=== PATIENT | male | born 1995 | race Caucasian/White ===

== ENCOUNTER 2023-10-29 19:17 | Emergency (ER) | payer MEDICAID, SELFPAY ==
[2023-10-29 19:17] VITALS: BP 260/174; PULSE 140; RESP 28; O2SAT 96; BMI 40.2
[2023-10-29 19:18] VITALS: BMI 39.5
--- NOTE | 2023-10-29 19:19 | CT_ITS ---
PROCEDURE INFORMATION: Exam: CT Head Without Contrast Exam date and time: 10/29/2023 7:22 PM Age: 33 years old Clinical indication: Stroke-like symptoms; Other: R/O stroke TECHNIQUE: Imaging protocol: Computed tomography of the head without contrast. Radiation optimization: All CT scans at this facility use at least one of these dose optimization techniques: automated exposure control; mA and/or kV adjustment per patient size (includes targeted exams where dose is matched to clinical indication); or iterative reconstruction. Other technique: STROKE PROTOCOL was implemented. COMPARISON: No relevant prior studies available. FINDINGS: Limitations: The study is motion degraded. Brain: Acute intraparenchymal hemorrhage is seen laterally in the right basal ganglia region measuring 4.5 x 1.7 x 3.4 cm with calculated volume of 13 cc. There is minimal surrounding edema present with minimal mass effect partially effacing the right lateral ventricle anteriorly. No significant midline shift. No acute ischemic infarct. Cerebral ventricles: No ventriculomegaly. Paranasal sinuses: No significant inflammation. No fluid levels. Mastoid air cells: No significant inflammation. Bones/joints: No acute fracture. Soft tissues: Unremarkable. IMPRESSION: Acute intraparenchymal hemorrhage centered in the lateral aspect of the right basal ganglia with minimal surrounding edema and mass effect. No evidence of midline shift. ASSESSMENT: ASPECTS ([facility] Stroke Program Early CT Score) is 10.
--- NOTE | 2023-10-29 19:23 | CT_ITS ---
PROCEDURE INFORMATION: Exam: CTA Neck With Contrast Exam date and time: 10/29/2023 7:26 PM Age: 27 years old Clinical indication: Stroke-like symptoms TECHNIQUE: Imaging protocol: Computed tomographic angiography of the neck with contrast. Exam focused on the cervical segments of the vasculature. 3D rendering (Not supervised by radiologist): MIP and/or 3D reconstructed images were created by the technologist. Radiation optimization: All CT scans at this facility use at least one of these dose optimization techniques: automated exposure control; mA and/or kV adjustment per patient size (includes targeted exams where dose is matched to clinical indication); or iterative reconstruction. Contrast material: ISO 370; Contrast volume: 100 ml; Contrast route: INTRAVENOUS (IV); COMPARISON: CT ANGIO HEAD 10/29/2023 7:26 PM FINDINGS: Right common carotid artery: No stenosis. No dissection or occlusion. Right internal carotid artery: No stenosis of the extracranial segment. No dissection or occlusion. Right external carotid artery: No visible occlusion. Left common carotid artery: No stenosis. No dissection or occlusion. Left internal carotid artery: No stenosis of the extracranial segment. No dissection or occlusion. Left external carotid artery: No visible occlusion. Right vertebral artery: No stenosis. No dissection or occlusion. Left vertebral artery: No stenosis. No dissection or occlusion. Lymph nodes: Subcentimeter mediastinal nodes are nonspecific and may be reactive. 2.1 cm subcarinal node. 1.8 cm right hilar node. Soft tissues: No significant soft tissue swelling. Bones/joints: No acute fracture. Lungs: There is diffuse ground-glass density in the visualized lungs. Other findings: There is tortuosity of the distal cervical internal carotid arteries bilaterally. IMPRESSION: 1. No occlusion or significant stenosis. 2. There is diffuse ground-glass density in the visualized lungs possibly atelectasis. Correlate for possible infection. 3. Nonspecific mediastinal and right hilar adenopathy. Correlate with history. REFERENCES: NASCET CRITERIA. The degree of stenosis in the cervical segment of the internal carotid artery is based on NASCET criteria. Normal is no stenosis. Mild is less than 50% stenosis. Moderate is 50-69% stenosis. Severe is 70% to 99% stenosis. Total occlusion is no detectable patent lumen.
--- NOTE | 2023-10-29 19:23 | CT_ITS ---
PROCEDURE INFORMATION: Exam: CTA Head With Contrast, Arteriography Exam date and time: 10/29/2023 7:26 PM Age: 27 years old Clinical indication: Stroke-like symptoms; Vomiting TECHNIQUE: Imaging protocol: Computed tomographic angiography of the head with contrast. Exam focused on the arteries. 3D rendering (Not supervised by radiologist): MIP and/or 3D reconstructed images were created by the technologist. Radiation optimization: All CT scans at this facility use at least one of these dose optimization techniques: automated exposure control; mA and/or kV adjustment per patient size (includes targeted exams where dose is matched to clinical indication); or iterative reconstruction. Contrast material: ISO 370; Contrast volume: 100 ml; Contrast route: INTRAVENOUS (IV); COMPARISON: CT HEAD/BRAIN WO CON 10/29/2023 7:22 PM FINDINGS: ANTERIOR CIRCULATION: Right internal carotid artery: Intracranial segment is patent with no significant stenosis. No aneurysm. Right middle cerebral artery: No occlusion or significant stenosis. No aneurysm. Right anterior cerebral artery: No occlusion or significant stenosis. No aneurysm. 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 Left middle cerebral artery: No occlusion or significant stenosis. No aneurysm. Left anterior cerebral artery: No occlusion or significant stenosis. No aneurysm. POSTERIOR CIRCULATION: Right vertebral artery: No occlusion or significant stenosis. No aneurysm. Left vertebral artery: No occlusion or significant stenosis. No aneurysm. Basilar artery: No occlusion or significant stenosis. No aneurysm. Right posterior cerebral artery: No occlusion or significant stenosis. No aneurysm. Left posterior cerebral artery: No occlusion or significant stenosis. No aneurysm. Brain: Right basal ganglia intraparenchymal hemorrhage laterally with minimal mass effect is again present. No midline shift is seen. Nonspecific tortuosity and mild ectasia diffusely of the intracranial vasculature. Cerebral ventricles: No ventriculomegaly. Bones/joints: No acute fracture. Soft tissues: Unremarkable. IMPRESSION: 1. No acute large vessel occlusion identified. 2. 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
[2023-10-29 19:30] LABS: Basophils # 0.2 K/mm3 (0-0.2); Basophils % 1.3 % (0.1-2.0); Eosinophils # 0.5 K/mm3 (0.0-0.4); Eosinophils % 3.1 % (0.1-12.0); Hematocrit 41.2 % (42.0-52.0); Hemoglobin 13.6 g/dL (14.1-18.0); Lymphocytes % 27.7 % (10-50); Mean Corpuscular Hemoglobin 28.8 pg (27.0-31.2); Mean Corpuscular Volume 87.2 fl (80-94); Mean Platelet Volume 9.2 fl (7.4-10.4); Monocytes # 0.5 K/mm3 (0.1-1.0); Monocytes % 3.7 % (1.7-9.3); Neutrophils # 9.3 K/mm3 (1.8-7.8); Neutrophils % 64.2 % (37.0-80.0); Platelet Count 272 K/mm3 (142-424); Red Blood Count 4.73 M/mm3 (4.60-6.20); Red Cell Distribution Width 17.2 % (11.5-17.5); White Blood Count 14.5 K/mm3 (4.8-10.8)
[2023-10-29] MEDS: DEXAMETHASONE 4MG/ML 1ML VIAL 10 MG IV (19:30)
--- NOTE | 2023-10-29 19:31 | PC.NURSE ---
[facility] declined to transport due to weather.
[2023-10-29 19:32] VITALS: BMI 40.2
--- NOTE | 2023-10-29 19:34 | PC.NURSE ---
Spoke with TOSHA BEAR from [facility] and verified dose of TXA.
--- NOTE | 2023-10-29 19:35 | HMH.EDGENADL ---
Discharge Plan Disposition Chief Complaint: Neuro Symptoms/Deficit Referrals Follow up/Referrals: Thanh Goldsmith MD [Primary Care Provider] - See instructions Clinical Impressions Clinical Impression: Basal ganglia hemorrhage Discharge ED Provider: Jonny Blum General Adult HPI General Stated complaint: Stroke Time Seen by Provider: 10/29/23 19:20 History of Present Illness HPI narrative: This is a 27(?)-year-old male presenting with spontaneous flacidity. Patient was sitting at dinner just before arrival and became weak on his left side. EMS was called. Patient brought to the emergency department. Per family, patient has autism, no past medical history otherwise and does not take any medications. Related Data Allergies Allergy/AdvReac Type Severity Reaction Status Date / Time No Known Allergies Allergy Verified 10/29/23 19:19 [facility] Disclaimer: The information contained in this section may have been updated after the patient was seen, as this information can be updated by other users. Social History Smoking Status: Unknown if ever smoked alcohol intake: never current occupational status: unemployed Travel in the last 8 weeks: None ROS Obtained: Yes unobtainable due to mental status Physical Exam General General appearance: alert and obese Eye Eye exam: Absent PERRL or EOMI Respiratory Respiratory exam: Present normal lung sounds bilaterally and other (Protecting airway, answering questions); Absent respiratory distress, wheezes, stridor or accessory muscle use Cardiovascular Cardiovascular exam: Present normal rhythm and tachycardia Abdominal Exam Abdominal exam: Present soft; Absent distention Neurological Exam Neurological exam: Present alert, oriented X3, motor sensory deficit and other (Flaccidity on left side. Severe dysarthria. Following commands on right side.); Absent CN II-XII intact Medical Decision Making Medical Records Medical records reviewed: Yes I reviewed the patient's medical records. Ernesto Inquiry Pt receiving controlled substance: No Enresto was queried for this patient: No Lab Data Lab Results 10/29/23 19:22: WBC 14.5 H, RBC 4.73, Hgb 13.6 L, Hct 41.2 L, MCV 87.2, MCH 28.8, MCHC 33.0, RDW 17.2, Plt Count 272, MPV 9.2, Neut % (Auto) 64.2, Lymph % (Auto) 27.7, [place] % (Auto) 3.7, Eos % (Auto) 3.1, Baso % (Auto) 1.3, Neut # (Auto) 9.3 H, Lymph # (Auto) 4.0, [place] # (Auto) 0.5, Eos # (Auto) 0.5 H, Baso # (Auto) 0.2 10/29/23 19:22 Orders (Tests/Meds): ED MEDICATIONS Generic Name Dose Route Start Last Admin Trade Name Freq PRN Reason Stop Dose Admin Sodium Chloride 10 ml 10/29/23 19:18 Sodium Chloride 0.9% 10ml Flush Syringe IV 11/28/23 19:17 NEEDED PRN Maintain IV Site Sodium Chloride 10 ml 10/29/23 19:20 Sodium Chloride 0.9% 10ml Flush Syringe IV 11/28/23 19:19 NEEDED PRN Maintain IV Site Discontinued Medications Generic Name Dose Route Start Last Admin Trade Name Freq PRN Reason Stop Dose Admin Dexamethasone Sodium Phosphate 10 mg 10/29/23 19:27 Dexamethasone 4mg/Ml 1ml Vial IV 10/29/23 19:28 ONCE ONE Tranexamic Acid 1,000 mg/ 260 mls @ 520 mls/hr 10/29/23 19:27 Sodium Chloride IV 10/29/23 19:28 ONCE ONE ORDERS Category Date Time Status CT angio head Stat Cat Scan 10/29/23 19:[address] angio neck Stat Cat Scan 10/29/23 19:[address] head/brain wo con Stat Cat Scan 10/29/23 19:19 Taken Activated Partial Thrombo Time Stat Lab 10/29/23 19:22 Received Basic Metabolic Panel Stat Lab 10/29/23 19:22 Received Complete Blood Count Auto Diff Stat Lab 10/29/23 19:22 Completed Lipid Panel Stat Lab 10/29/23 19:22 Received Prothrombin Time INR Stat Lab 10/29/23 19:22 Received Troponin I Q3H Lab 10/29/23 22:30 Ordered Troponin I Q3H Lab 10/30/23 01:30 Ordered Troponin I Stat Lab 10/29/23 19:22 Received Urinalysis and Microscopic Stat Lab 10/29/23 19:21 Ordered Medical Decision Narrative: This is a 27(?)-year-old male presenting with spontaneous flacidity. Patient was sitting at dinner just before arrival and became weak on his left side. EMS was called. Patient brought to the emergency department. Per family, patient has autism, no past medical history otherwise and does not take any medications. History obtained with EMS, patient's mother. On arrival, patient protecting her own following commands on his right, flaccid on his left. Patient answering to shakes and nods, denying pain. Patient taken immediately to CT scanner. CT of the head with concern for intraparenchymal hemorrhage on the right without significant midline shift. Initial blood pressure systolic to 60, tachycardic 150. Patient was given 20 mg of labetalol IV, 1 g TXA. Intubation was considered, but given patient protecting airway, following commands, alert, answering appropriate questions, not deemed appropriate at this time. Head of bed elevated. Neurosurgery at [facility] was contacted, graciously excepted transfer under Dr. Ruvalcaba. Critical Care Critical Care Time Critical Care Time: Yes (neuro) Attestation: On 10/29/23, the high probability of a clinically significant, sudden or life threatening deterioration of the following system(s) required my full and direct attention, intervention and personal management. The time I documented below is in addition to time spent performing reported procedures but includes the following listed in this critical care notation. Total Time Total Critical Care Time: 45
--- NOTE | 2023-10-29 19:39 | PC.NURSE ---
Informed ER doctor about dose being verified
[2023-10-29 19:42] LABS: Activated Partial Thrombo Time 25.9 seconds (22.8-30.6); Anion Gap 15.5 mEq/L (5-15); Blood Urea Nitrogen 25 mg/dl (9-20); Calcium 10.1 mg/dl (8.4-10.2); Carbon Dioxide 22 mmol/L (22.0-30.0); Chloride 102 mmol/L (98-107); Chol/HDL Ratio 6.5 (1-3.5); Cholesterol 183 mg/dl (140-200); Creatinine Clearance Estimated 131 mL/min (50-200); Estimated Glomerular Filt Rate 66 ml/min (>60); GFR (African American) 80 ML/MIN (>60); Glucose 190 mg/dl (74-100); HDL Cholesterol 28 mg/dl (40-60); INR 0.96 (0.9-1.1); Potassium 3.5 mmoL/L (3.5-5.1); Prothrombin Time 10.4 seconds (10.1-12.5); Sodium 136 mmol/L (136-145); Triglycerides 400 mg/dl (30-150)
[2023-10-29] MEDS: TRANEXAMIC ACID 1,000 MG in 0.9 % SODIUM CHLORIDE 250 ML 520 MG IV (19:46)
[2023-10-29 19:50] VITALS: BP 236/157
[2023-10-29] MEDS: LABETALOL 20MG/4ML SYRINGE 20 MG IV (19:50)
[2023-10-29 19:53] LABS: Direct LDL Cholesterol 94.73 mg/dL (100-129)
[2023-10-29 19:56] VITALS: TEMP 37.5
[2023-10-29 19:57] LABS: Microscopic, Urine URINE MICROSCOPIC (MICROSCOPIC)
[2023-10-29 19:59] LABS: Troponin I 0.28 ng/ml (0.00-0.034)
[2023-10-29 20:00] VITALS: BP 211/150; PULSE 112; RESP 16; O2SAT 91
[2023-10-29 20:02] LABS: Appearance,Urine CLEAR (Clear); Bilirubin,Urine Negative (Negative); Blood, Urine TRACE-I (Negative); Color,Urine YELLOW (Yellow); Glucose,Urine (UA) TRACE (Negative); Ketones,Urine TRACE (Negative); Leukocyte Esterase,Urine Negative (Negative); Nitrate,Urine Negative (Negative); Protein,Urine 2+ (Negative); Specific Gravity, Urine >= 1.030 (1.005-1.030); Urobilinogen,Urine 0.2 EU/dl (0.2)
[2023-10-29 20:05] VITALS: BP 211/150
[2023-10-29] MEDS: LABETALOL 5MG/ML 20ML MDV 20 MG IV (20:05)
[2023-10-29 20:08] VITALS: BP 199/142; PULSE 110; RESP 20; TEMP 37.5; O2SAT 92
[2023-10-29] MEDS: NICARDIPINE HCL 25 MG in 0.9 % SODIUM CHLORIDE 240 ML 50 MG IV (20:19)
[2023-10-29 20:29] LABS: RBC,Urine Occasional #/hpf (0-3)
== END 2023-10-29 20:11 | disposition short-term general hospital (02) ==
PROVIDERS: Physician Assistant; Emergency Provider Emergency Medicine; PCP Internal Medicine Adolescent Medicine
DX: I61.0 Nontraumatic intracerebral hemorrhage in hemisphere, subcortical (principal); R53.1 Weakness; F84.0 Autistic disorder
CPT/HCPCS: 51702; 70450; 70496; 70498; 80048; 80061; 81001; 84484; 85025; 85610; 85730; 96374; 96375; 99291

== ENCOUNTER → 2024-02-01 08:10 | Outpatient (CLI) | payer MEDICAID, SELFPAY | LOC: SL 08:11 | PROVIDERS: PCP Internal Medicine Adolescent Medicine; Visit Provider Internal Medicine Adolescent Medicine | DX: G47.33 Obstructive sleep apnea (adult) (pediatric) (principal); G47.36 Sleep related hypoventilation in conditions classified elsewhere | CPT/HCPCS: G0399 ==

== ENCOUNTER 2024-02-03 14:00 | Outpatient (RCR) | payer MEDICAID, SELFPAY ==
--- NOTE | 2023-11-30 11:29 | HMH.PTOPEV ---
PT Outpatient Evaluation Rehab PT Outpatient Evaluation Start: 11/30/23 10:01 Freq: Status: Active Protocol: Document 11/30/23 11:19 SERAFIN (Rec: 11/30/23 11:28 SERAFIN [id number]) E-signed By Bryson Henderson, PT Outpatient Therapy Subjective History Subjective History Pt and pt's mother report pt sustained a CVA on 10/29/23, caused by right basal ganglia ICH. Pt reports left sided weakness since CVA, however reports 'I feel like I've gotten most of my left leg strength back.' Pt and pt's mother report some lingering deficits in overall standing and walking endurance, and desire to return to work at [employer] part-time, 'but I think I need to get stronger.' PMH:autism New diagnosis of cancer in past 12 No months? Chief Complaint Weakness Symptoms Relieved By Rest/Positioning Symptoms Aggravated By Standing,Physical Activity, Walking Prior Functional Limitations None Current Functional Limitations Housework,Standing,Walking Hip/Knee Eval Gait Observation General Gait Pattern Observation No Deviations/Normal Assistive Device Assistive Devices None / NA MMT left Hip Flexion Strength Grade 4 Good Hip Abduction Strength Grade 4 Good Hip Adduction Strength Grade 4 Good Hip Extension Strength Grade 4 Good Knee Extension Strength Grade 5 Normal Knee Flexion Strength Grade 4 Good right Hip Flexion Strength Grade 5 Normal Hip Abduction Strength Grade 5 Normal Hip Adduction Strength Grade 5 Normal Hip Extension Strength Grade 5 Normal Knee Extension Strength Grade 5 Normal Knee Flexion Strength Grade 5 Normal ROM bilateral Hip ROM Reason Not Measured Within Functional Limits Knee ROM Reason Not Measured Within Functional Limits Ankle/Foot Eval ROM Ankle/Foot ROM Reason Not Measured Within Functional Limits MMT Ankle Dorsiflexion Strength Grade 5 Normal Tinetti Sitting Balance Sitting Balance Steady, safe Arising from Chair Ability to Arise Able, w/o using arms Attempts to Arise Arises on 1st attempt Standing Balance Immediate Standing Balance Steady w/o support Standing Balance Steady, wide stance Nudged Response Steady Standing with Eyes Closed Steady Turning Step Pattern Turning 360 Degrees Continuous steps Stability Turning 360 Degrees Steady Sitting Down Sitting Down Safe, steady Gait and Step Initiation of Gait No hesitancy Right Foot Step Length Does pass stance foot Right Foot Step Height Completely clears floor Left Foot Step Length Does pass stance foot Left Foot Step Height Completely clears floor Step Description Step Symmetry Step length appears equal Step Continuity Steps appear continuous Gait Description Path Description Straight Trunk Description No sway Walking Stance Heels apart Scoring and Interpretation Tinetti Composite Score (points) 26 Outpatient Therapy Assessment Impairments Problems/Impairmments Impaired Strength,Impaired Walking,Impaired Standing, Impaired Household Care, Impaired Work Activities, Subjective C/O Pain,Impaired Self Care/Self Management Prognosis Rehab Potential Good Clinical Impression Consistent with Diagnosis Yes Short Term Goals Number of Weeks 4 Increase Strength Yes: 4+/5 LLE Increase Ability to Walk Yes: 30MIN Increase Ability to Stand Yes: 30MIN Improve Ability For Household Care Yes: 30MIN Patient to be Ind w/ HEP Yes 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 Number of Weeks 6-8 Increase Strength Yes: 5/5 LLE Increase Ability to Walk Yes: 60MIN Increase Ability to Stand Yes: 60MIN Improve Ability For Household Care Yes: 60MIN Improve Tolerance to Work Activities Yes: [employer] PART[employer]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 Patient/Guardian verbally acknowledges Yes understanding of treatment program and consents to further treatment? Patient/Guardian verbally acknowledges Yes understanding of diagnosis, prognosis and goals for treatment? Eval Complexity PT Charges 10182 - Moderate Complexity Shoulder/Elbow Eval Shoulder Objective Measurements Elbow Objective Measurements PHYSICIAN CERTIFICATION: I certify the specified therapy services for Charles Casas are required, authorized, and reviewed every 30 days.
--- NOTE | 2024-02-03 18:01 | HMH.RHREAS ---
Rehab Reassessment Rehab OP Re-assessment Start: 11/30/23 10:01 Freq: Status: Active Protocol: Document 02/03/24 17:56 [email or web address] (Rec: 02/03/24 18:01 PHORNE [id number]) E-signed By Sharath Cruz, PT Tinetti Sitting Balance Sitting Balance Steady, safe Arising from Chair Ability to Arise Able, w/o using arms Attempts to Arise Arises on 1st attempt Standing Balance Immediate Standing Balance Steady w/o support Standing Balance Narrow stance w/o support Nudged Response Steady Standing with Eyes Closed Steady Turning Step Pattern Turning 360 Degrees Continuous steps Stability Turning 360 Degrees Steady Sitting Down Sitting Down Safe, steady Gait and Step Initiation of Gait No hesitancy Right Foot Step Length Does pass stance foot Right Foot Step Height Completely clears floor Left Foot Step Length Does pass stance foot Left Foot Step Height Completely clears floor Step Description Step Symmetry Step length appears equal Step Continuity Steps appear continuous Gait Description Path Description Straight Trunk Description No sway Walking Stance Heels together Scoring and Interpretation Tinetti Composite Score (points) 28 Interpretation of Scores Low risk for falls (>24) Rehab Re-assessment Subjective Subjective Pt reports I'm a little tired , but I feel good today. I've been back to work a little bit and I haven't had any problems standing or walking. Objective Objective Notes MMT: LEFT HIP FLX 4+/5, LEFT HIP ABD 4+/5, LEFT HIP ADD 5/5 , LEFT HIP EXT 5/5, LEFT KNEE EXT 5/5, LEFT KNEE FLX 5/5 Tinetti: No difficulty clearing L LE during swing phase of gait. Dynamic standing balance is GOOD. Assessment Progress Assessment Progressing as Expected Assessment Notes Returned to work and independent with all ADLs. Pt has met all goals and is appropriate to continue his HEP independently at this time . No further skilled physical therapy needs at this time. Patient goals met STG'S 11/28 LTG'S 12/30 Plan Plan Will D/C pt to independent HEP at this time. Frequency of Therapy 0 Duration of therapy 0 Time and Billing Re-Eval Time 11 Re-Eval Billing Units 1 PHYSICIAN CERTIFICATION: I certify the specified therapy services for Charles Casas are required, authorized, and reviewed every 30 days.
== END 2024-02-03 14:05 | disposition home or self-care (01) ==
LOC: PT 14:00
PROVIDERS: Visit Provider Internal Medicine Adolescent Medicine
DX: I69.918 Other symptoms and signs involving cognitive functions following unspecified cerebrovascular disease (principal)
CPT/HCPCS: 97110; 97163; 97164; 97530

== ENCOUNTER 2024-03-02 14:00 | Outpatient (RCR) | payer MEDICAID, SELFPAY ==
--- NOTE | 2023-11-30 10:45 | HMH.OTOPEV ---
OT Inpatient Evaluation Rehab OT Outpatient Eval Start: 11/30/23 10:29 Freq: Status: Active Protocol: Document 11/30/23 10:29 RMARSHALL (Rec: 11/30/23 10:44 [facility] [id number]) E-signed By Yehuda Longoria, OT Outpatient Therapy Subjective History Subjective History Pt is a 27 year old male who reports to therapy for initial evaluation after CVA. Pt had acute onset of L sided weakness on 10/29/23 due to a right basal ganglia bleed and was admitted to . Following discharge from he went to [facility] rehab for 1 week . Prior to stroke, pt was independent with all ADLs and IADLs. 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 Pt does have a past medical history of Autism. At this time, pt appears to be back to baseline with ADLS. Pt does have some residual deficits to LUE from stroke. 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 Pt is right hand dominant. Pt's AROM at left wrist and elbow are within normal limits, but pt's shoulder AROM is slightly declined. Pt will continue to be seen to address LUE deficits along with fine motor deficits. STG L hand tower excavator operator strength: 45 lbs LTG L hand tower excavator operator strength: 50 lbs 9 Hole peg test current score: 32 seconds STG 9 hole peg test: 30 seconds LTG 9 hole peg test: 28 seconds New diagnosis of cancer in past 12 No months? 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 Aggravated By Physical Activity,Lifting Prior Functional Limitations None Current Functional Limitations Reaching,Lifting,Housework Symptom Description Activity Dependent Shoulder/Elbow Eval Shoulder Objective Measurements Shoulder ROM Left Shoulder Abduction Active Range of 125 degrees Motion (degrees) Shoulder Flexion Active Range of Motion 145 degrees (degrees) Query Text: Shoulder External Rotation Active Range 70 degrees of Motion (degrees) Shoulder Internal Rotation Active Range 70 degrees of Motion (degrees) Shoulder MMT Shoulder Abduction Strength Grade 4- Good- Shoulder Flexion Strength Grade 4- Good- Shoulder External Rotation Strength 4- Good- Grade Shoulder Internal Rotation Strength 4- Good- Grade Shoulder Strength Patient Testing Sitting Position Elbow Objective Measurements Elbow MMT Left Elbow Flexion Strength Grade 4- Good- Elbow Extension Strength Grade 4- Good- Supination Strength Grade 4- Good- Pronation Strength Grade 4- Good- Wrist/Hand Eval Wrist Manual Muscle Testing Left Wrist Extension Strength Grade 4- Good- Wrist Flexion Strength Grade 4- Good- Wrist Radial Deviation Strength Grade 4- Good- Wrist Ulnar Deviation Strength Grade 4- Good- Forearm Supination Strength Grade 4- Good- Forearm Pronation Strength Grade 4- Good- Supervisor Acoustical Tile Carpenters/Pinch Strength Right Supervisor Acoustical Tile Carpenters Strength Measurement (lbs) 55 Left Supervisor Acoustical Tile Carpenters Strength Measurement (lbs) 30 OT Outpatient Assessment Impairments Problems/Impairments Palpation Tenderness,Impaired Range of Motion,Impaired Strength,Impaired Endurance, Impaired Lifting,Impaired Recreational Activities, Impaired Work Activities Prognosis Rehab Potential Good Clinical Impression Consistent with Diagnosis Yes Short Term Goals Number of Weeks 4 Increase Range of Motion Yes: L shoulder: Flex: 155 Abd : 135 ER: 80 Increase Strength Yes: 4/5 strength throughout L UE Increase Endurance Yes: Pt will tolerate L UE exercises for ~20 min prior to rest. 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 Patient to be Ind w/ Advanced HEP Yes: Advanced strengtening exercises Outpatient Therapy Plan of Care Treatment Plan May Include Therapeutic Exercise Including Home Yes Exercise Program Manual Therapy Techniques Yes Neuromuscular Re-education Yes Therapeutic Activities to Return to Yes Previous Functional/Work Level Electrical Stimulation Yes Ultrasound/Phonophoresis Yes Iontophoresis Yes Orthotics/Bracing/Splinting Yes Massage Yes Eval/Re-Eval Yes Frequency Times per week 2 Duration Number of Weeks 6 Addendums This patient is a candidate for social No or vocational rehab? Patient/Guardian verbally acknowledges Yes understanding of treatment program and consents to further treatment? Patient/Guardian verbally acknowledges Yes understanding of diagnosis, prognosis and goals for treatment? Eval Complexity OT Charge 85392 - Moderate Complexity PHYSICIAN CERTIFICATION: I certify the specified therapy services for Charles Casas are required, authorized, and reviewed every 30 days.
--- NOTE | 2023-12-31 16:02 | HMH.RHREAS ---
Rehab Reassessment Rehab OP Re-assessment Start: 11/30/23 10:29 Freq: Status: Active Protocol: Document 12/31/23 14:56 FAHAD (Rec: 12/31/23 16:02 JOAOL [id number]) E-signed By Yehuda Longoria OT Rehab Re-assessment Subjective Subjective I do feel like I am stronger. Objective Objective Notes Pt continues to be seen twice a week in order to address LUE deficits. Each session pt engages in LUE AROM, AAROM, and strengthening exercises. Pt also engages in rate clerk passenger strengthening and fine motor precision activities. Pt does receive PROM manual stretching to left shoulder in flexion, abduction, ER, and IR. Assessment Progress Assessment Progressing as Expected Assessment Notes Pt very consistent about attending therapy sessions. Pt demonstrates great improvement in overall LUE function, AROM, strength, and rate clerk passenger strength since initial evaluation. Current AROM L shoulder and MMT Flex: 155 degrees; 4 Abd: 165 degrees; 4 ER: 85 degrees; 4 IR: 70 degrees; 4 Current L hand rate clerk passenger strength: 48 lbs [address] goals [address]-4 STG L hand rate clerk passenger strength: 45 lbs Goals Not Met see below Revised Goals LT-4 Plan Plan Continue with OT plan of care at this time. Frequency of Therapy 2x's a week Duration of therapy 4 more weeks Time and Billing Re-Eval Time 10 Re-Eval Billing Units 1 PHYSICIAN CERTIFICATION: I certify the specified therapy services for Charles Casas are required, authorized, and reviewed every 30 days.
== END 2024-03-02 14:05 | disposition home or self-care (01) ==
LOC: OT 14:00
PROVIDERS: Visit Provider Internal Medicine Adolescent Medicine
DX: I61.8 Other nontraumatic intracerebral hemorrhage (principal); I61.0 Nontraumatic intracerebral hemorrhage in hemisphere, subcortical; I69.354 Hemiplegia and hemiparesis following cerebral infarction affecting left non-dominant side
CPT/HCPCS: 97110; 97140; 97164; 97166

== ENCOUNTER 2024-03-29 13:24 | Outpatient (CLI) | payer MEDICAID, SELFPAY ==
[2024-03-29 13:35] LABS: Microscopic, Urine URINE MICROSCOPIC (MICROSCOPIC)
[2024-03-29 14:14] LABS: Appearance,Urine CLEAR (Clear); Bilirubin,Urine Negative (Negative); Blood, Urine Negative (Negative); Color,Urine YELLOW (Yellow); Glucose,Urine (UA) Negative (Negative); Ketones,Urine Negative (Negative); Leukocyte Esterase,Urine Negative (Negative); Nitrate,Urine Negative (Negative); Protein,Urine TRACE (Negative); Specific Gravity, Urine 1.025 (1.005-1.030); Urobilinogen,Urine 0.2 EU/dl (0.2)
[2024-03-29 14:16] LABS: Basophils # 0.1 K/mm3 (0-0.2); Basophils % 0.8 % (0.1-2.0); Eosinophils # 0.1 K/mm3 (0.0-0.4); Eosinophils % 1.6 % (0.1-12.0); Hematocrit 38.2 % (42.0-52.0); Hemoglobin 11.9 g/dL (14.1-18.0); Lymphocytes # 2.3 K/mm3 (0.7-4.5); Lymphocytes % 30.6 % (10-50); Mean Corpuscular HGB Conc 31.1 g/dL (31.8-35.4); Mean Corpuscular Hemoglobin 29.3 pg (27.0-31.2); Mean Corpuscular Volume 94.4 fl (80-94); Mean Platelet Volume 9.3 fl (7.4-10.4); Monocytes # 0.4 K/mm3 (0.1-1.0); Monocytes % 5.9 % (1.7-9.3); Neutrophils # 4.6 K/mm3 (1.8-7.8); Neutrophils % 61.1 % (37.0-80.0); Platelet Count 250 K/mm3 (142-424); Red Blood Count 4.05 M/mm3 (4.60-6.20); Red Cell Distribution Width 14.8 % (11.5-17.5); White Blood Count 7.5 K/mm3 (4.8-10.8)
[2024-03-29 14:46] LABS: Creatinine,Urine Random 179 mg/dL (Not Estab.)
[2024-03-29 14:49] LABS: Albumin Level 4.5 g/dl (3.5-5.0); Anion Gap 11.1 mEq/L (5-15); Blood Urea Nitrogen 27 mg/dl (9-20); Calcium 9.9 mg/dl (8.4-10.2); Carbon Dioxide 25 mmol/L (22.0-30.0); Chloride 107 mmol/L (98-107); Estimated Glomerular Filt Rate 51 ml/min (>60); GFR (African American) 62 ML/MIN (>60); Glucose 92 mg/dl (74-100); Phosphorous 3.9 mg/dl (2.5-4.5); Potassium 5.1 mmoL/L (3.5-5.1); Sodium 138 mmol/L (136-145)
== END 2024-03-29 23:59 | disposition home or self-care (01) ==
LOC: LAB 13:26
PROVIDERS: PCP Internal Medicine Adolescent Medicine; Visit Provider Internal Medicine Nephrology
DX: I10 Essential (primary) hypertension (principal)
CPT/HCPCS: 36415; 80069; 81001; 82570; 84156; 85025

== ENCOUNTER 2024-05-11 09:13 | Outpatient (CLI) | payer MEDICAID, SELFPAY ==
[2024-05-11 10:20] LABS: Albumin Level 4.7 g/dl (3.5-5.0); Chloride 106 mmol/L (98-107); Potassium 4.4 mmoL/L (3.5-5.1); Sodium 139 mmol/L (136-145)
[2024-05-11 10:22] LABS: Blood Urea Nitrogen 30 mg/dl (9-20); Estimated Glomerular Filt Rate 45 ml/min (>60); GFR (African American) 54 ML/MIN (>60)
[2024-05-11 10:23] LABS: Alanine Aminotransferase 18 U/L (12-78); Albumin/Globulin Ratio 1.5 (1.1-1.8); Alkaline Phosphatase 52 U/L (38-126); Anion Gap 12.4 mEq/L (5-15); Aspartate Amino Transferase 24 U/L (17-59); Bilirubin,Total 0.8 mg/dl (0.2-1.3); Carbon Dioxide 25 mmol/L (22.0-30.0); Chol/HDL Ratio 3.8 (1-3.5); Cholesterol 109 mg/dl (140-200); Globulin 3.2 g/dL (1.3-3.2); Glucose 94 mg/dl (74-100); HDL Cholesterol 29 mg/dl (40-60); Total Protein,Serum 7.9 g/dl (6.3-8.2); Triglycerides 208 mg/dl (30-150); VLDL Cholesterol 42 mg/dL (0-40)
[2024-05-11 10:30] LABS: Hemoglobin A1C 5.2 % (4.0-6.0)
[2024-05-11 10:34] LABS: Direct LDL Cholesterol 39.95 mg/dL (100-129)
== END 2024-05-11 23:59 | disposition home or self-care (01) ==
PROVIDERS: PCP Internal Medicine Adolescent Medicine; Visit Provider Internal Medicine Adolescent Medicine
DX: E11.69 Type 2 diabetes mellitus with other specified complication (principal); E78.5 Hyperlipidemia, unspecified
CPT/HCPCS: 36415; 80053; 80061; 83036

== ENCOUNTER 2024-06-15 14:00 | Outpatient (RCR) | payer MEDICAID, SELFPAY | END 2024-06-15 23:59 | disposition home or self-care (01) | LOC: ST 14:00 | PROVIDERS: Visit Provider Physical Medicine & Rehabilitation | DX: I61.8 Other nontraumatic intracerebral hemorrhage (principal); I61.0 Nontraumatic intracerebral hemorrhage in hemisphere, subcortical | CPT/HCPCS: 92507; 92523; 97129; 97130 ==

== ENCOUNTER 2025-04-05 09:20 | Outpatient (CLI) | payer MEDICAID, SELFPAY | END 2025-04-05 23:59 | disposition home or self-care (01) | LOC: LAB 09:22 | PROVIDERS: PCP Nurse Practitioner Family; Visit Provider Internal Medicine Nephrology | DX: N18.30 Chronic kidney disease, stage 3 unspecified (principal) | CPT/HCPCS: 82570; 84156 ==